=== PATIENT | male | born 1975 | race Caucasian/White ===

== ENCOUNTER 2018-10-06 13:21 | Emergency (ER) | payer OTHER, SELFPAY ==
[2018-10-06 14:13] VITALS: BP 131/87; PULSE 89; RESP 18; TEMP 36.7; O2SAT 98; BMI 30.7
== END 2018-10-06 16:30 | disposition left against medical advice (07) ==
PROVIDERS: Emergency Provider Emergency Medicine
DX: R21 Rash and other nonspecific skin eruption (principal)
CPT/HCPCS: 99281; 99282